=== PATIENT | male | born 1985 | race Caucasian/White ===

== ENCOUNTER 2025-03-09 20:20 | Inpatient (IN) | payer OTHER, SELFPAY ==
[2025-03-09] VITALS (7 sets, daily range): BP systolic 115–149; BP diastolic 63–83; PULSE 91–124; RESP 16–21; TEMP 37.1; O2SAT 91–96; BMI 32.5
[2025-03-09] MEDS: KETOROLAC 30 MG/ML VIAL 15 MG IV (21:11)
[2025-03-09] MEDS: LACTATED RINGERS 1,000 ML 1000 ML IV ×2 (21:12→22:24)
--- NOTE | 2025-03-09 21:38 | PC.NURSE ---
pt was admitted to [facility] yesterday, but was boarding in the ED, dx with pancreatitis. pt left AMA mónica to come here. pt states he did not think they did the tests right and he did not understand what was going on with his body and just wanted to understand so he could get better and go back to work. Explained to pt that the testing done at [facility] was the correct testing, that he was boarding d/t the hospital being full. Explained pancreatitis to pt, after pt stated he had stopped drinking after having the problem before until last night, that this was a problem that he would not be able to ever drink any alcohol without most likely irritating his pancreatits again and causing a flare. pt stated I wish the doctor had explained that to me before. Provided pt education on the tests that were done at [facility] and our plan of care here to follow up on those tests,
[2025-03-09 21:46] LABS: Alanine Aminotransferase 26 IU/L (<50); Albumin 3.8 g/dL (3.5-5.0); Albumin Globulin Ratio 1.2 (1.0-2.8); Alkaline Phosphatase 78 U/L (38-126); Blood Urea Nitrogen 6 mg/dL (9-20); Calcium 8.7 mg/dL (8.4-10.2); Carbon Dioxide 26 mmol/L (22-32); Chloride 98 mmol/L (98-107); Estimated Glomerular Filt Rate > 60 mL/min (>60); Globulin 3.3 g/dL (1.7-4.1); Glucose 87 mg/dL (70-99); HEMOLYSIS < 15 (0-50); Lipase 705 U/L (23-300); Potassium 3.5 mmol/L (3.4-5.1); Sodium 132 mmol/L (137-145); Total Protein 7.1 g/dL (6.3-8.2)
[2025-03-09 21:53] LABS: Add Manual Diff / Slide Review NO; Hematocrit 40.3 % (41-53); Hemoglobin 13.6 g/dL (13.5-17.5); Lymphocytes Absolute Auto 600 /uL (1100-4500); Mean Corpuscular HGB Conc 33.7 % (30-36); Mean Corpuscular Hemoglobin 31.8 PG (26-34); Mean Corpuscular Volume 94.2 fL (80-100); Platelet Count 235 X10^3/uL (150-400)
--- NOTE | 2025-03-09 22:08 | ED.ABDPAIN ---
HPI - Abdominal Pain General Chief Complaint: Abdominal Pain Stated Complaint: Abdominal pain Time Seen by Provider: 03/09/25 20:24 Source: patient Mode of arrival: Ambulatory History of Present Illness HPI narrative: 40-year-old gentleman seen at [facility] ER for epigastric abdominal pain with a history of recurrent pancreatitis and duodenitis recently admitted to 3 weeks ago for the same presentation with a history of alcoholism. When he was seen in the ER on 03/08 his lipase was 373 urine was normal given fluids and Dilaudid and Ativan given Maalox and Protonix also he was also given a prescription for oxycodone omeprazole to his pharmacy after having left Against Medical Advice. He had a CT scan done on 03/08 in the ER which showed interval development of colitis involving the hepatic flexure and proximal transverse colon. Decreased thickening and mucosal edema of the 1st and 2nd portion of the duodenum which may represent improving duodenitis. Pulmonary nodules in the bilateral lung bases. Indeterminate lesion 2.9 cm in the left upper pole may represent a hemorrhagic cyst and to consider follow up with renal ultrasound when feasible he did have a white count of 14.9 hemoglobin 13.6 platelets 291 sodium 136 anion gap of 8 BUN 7 creatinine 0.7 T bili was 2.1 from 1.9 yesterday lipase went up to 495 today. His last drink was on 03/07. He drinks beer 6-12 pack and whiskey. Other than what is stated 14 point review of system is negative. Related Data Allergies Allergy/AdvReac Type Severity Reaction Status Date / Time No Known Drug Allergies Allergy Verified 03/09/25 20:26 Review of Systems Review of Systems ROS Unobtainable: All systems reviewed & are unremarkable except as noted in HPI and below Patient History Smoking Status: Current every day smoker Exam Narrative Exam Narrative: GENERAL: [40 year old patient appears stated age. Well-developed patient, in mild distress. HEAD: Atraumatic. Normocephalic. EYES: Pupils equal round and reactive. Extraocular motions intact. No scleral icterus. No injection or drainage. ENT: Nose without bleeding, purulent drainage. Throat without erythema, tonsillar hypertrophy or exudate. Airway patent. NECK: Trachea midline. Non tender CARDIOVASCULAR: Regular rate and rhythm without murmurs, gallops, or rubs. RESPIRATORY: Clear to auscultation. Breath sounds equal bilaterally. No wheezes, rales, or rhonchi. GASTROINTESTINAL: Abdomen soft, diffuse tenderness to palpation but no peritoneal signs EXTREMITIES: No edema or joint tenderness. BACK: Nontender without deformity or crepitance. No flank tenderness. NEURO: AOx3. SKIN: No rash or erythema of visible areas Initial Vital Signs Initial Vital Signs: Vital Signs Temperature 98.8 F 03/09/25 20:26 Pulse Rate 124 H 03/09/25 20:26 Respiratory Rate 18 03/09/25 20:26 Blood Pressure 130/79 03/09/25 20:26 Pulse Oximetry 96 03/09/25 20:26 Oxygen Delivery Method Room Air 03/09/25 20:26 Course Orders Ordered: ED Orders 03/09/25 21:25 Complete Blood Count AUTO DIFF Stat Comprehensive Metabolic Panel Stat Lipase Stat Discontinued Medications Lactated Ringer's (Lactated Ringers) 1,000 mls @ 1,000 mls/hr IV BOLUS ONE Stop: 03/09/25 22:01 Last Admin: 03/09/25 21:12 Dose: 1,000 mls/hr Documented By: TREVON Ketorolac Tromethamine (Ketorolac 30 Mg/Ml Vial) 15 mg IV NOW ONE Stop: 03/09/25 21:03 Last Admin: 03/09/25 21:11 Dose: 15 mg Documented By: TREVON Vital Signs Vital signs: Vital Signs - 8 hr 03/09/25 20:26 Temperature 98.8 F Pulse Rate 124 H Respiratory Rate 18 Blood Pressure 130/79 Pulse Oximetry 96 Oxygen Delivery Method Room Air MDM - Abdominal Pain Lab Data 03/09/25 21:25 03/09/25 21:25 Labs: Lab Results 03/09/25 Range/Units 21:25 WBC 12.2 H (4.5-11.0) X10^3/uL RBC 4.28 L (4.5-5.9) X10^6/uL Hgb 13.6 (13.5-17.5) g/dL Hct 40.3 L (41-53) % MCV 94.2 (80-100) fL MCH 31.8 (26-34) PG MCHC 33.7 (30-36) % RDW 14.2 (11.6-14.8) % Plt Count 235 (150-400) X10^3/uL Neut % (Auto) 88.3 H (50-75) % Lymph % (Auto) 4.8 L (25-40) % [place] % (Auto) 5.9 (3-14) % Eos % (Auto) 0.4 L (2-4) % Baso % (Auto) 0.6 (0-2) % Neut # (Auto) 34563 H (6749-7071) /uL Lymph # (Auto) 600 L (3354-4425) /uL [place] # (Auto) 700 (0-900) /uL Eos # (Auto) 0 (0-450) /uL Baso # (Auto) 100 (0-100) /uL Sodium 132 L (137-145) mmol/L Potassium 3.5 (3.4-5.1) mmol/L Chloride 98 (98-107) mmol/L Carbon Dioxide 26 (22-32) mmol/L BUN 6 L (9-20) mg/dL Creatinine 0.66 (0.66-1.25) mg/dL Estimated GFR > 60 (>60) mL/min BUN/Creatinine Ratio 9.1 (6-22) Glucose 87 (70-99) mg/dL Calcium 8.7 (8.4-10.2) mg/dL Total Bilirubin 1.5 H (0.2-1.3) mg/dL AST 32 (17-59) IU/L ALT 26 (<50) IU/L Alkaline Phosphatase 78 (38-126) U/L Total Protein 7.1 (6.3-8.2) g/dL Albumin 3.8 (3.5-5.0) g/dL Globulin 3.3 (1.7-4.1) g/dL Albumin/Globulin Ratio 1.2 (1.0-2.8) Lipase 705 H (23-300) U/L MDM Narrative Medical decision making narrative: All lab work, vital signs, nurse triage note, medication list, previous ER visits, and all imaging studies reviewed. WBC 12.2 hemoglobin 13.6 with 235 sodium 132 potassium 3.5 chloride 98 CO2 26 BUN 6 creatinine 0.66 AST 32 ALT 26 T bili 1.5 lipase 705 patient given lactated ringer 1 L bolus x2, Toradol, protonix and dilaudid here. Differential diagnosis alcoholic pancreatitis, alcohol withdrawal, use and abuse. Case discussed with who has graciously accepted the patient for inpatient admission Discharge Plan Departure Patient Disposition: Admitted as Observation Clinical Impression: Acute alcoholic pancreatitis Qualifiers: Acute pancreatitis complication: no infection or necrosis Qualified Code(s): K85.20 - Alcohol induced acute pancreatitis without necrosis or infection
[2025-03-09] MEDS: PANTOPRAZOLE 40 MG VIAL IV (22:30)
--- NOTE | 2025-03-09 22:45 | P.HP_ITS ---
History of Present Illness History of Present Illness Chief complaint: Abdominal pain Narrative: 40 M with PMH of alcohol use disorder drinking 12 pack beer + whiskey daily presents for continued epigastric pain. He was seen yesterday at [facility] ER but left AMA due to boarding in ER. Alcohol level was reportedly not done there. Lipase was 373 and he was given IV fluids, Dilaudid, Ativan, Maalox, and Protonix along with prescription for omeprazole and oxycodone upon leaving AMA. CT showed colitis and duodenitis. Of note, 3 weeks ago, he was admitted for alcoholic pancreatitis and duodenitis. His last alcoholic drink was reportedly on 03/07 after quitting alcohol after the last hospitalization 2.5 weeks ago until 03/07 but has no withdrawal symptoms as of yet. He denies ever having withdrawal seizures. He has never been hospitalized for pancreatitis. Now, his lipase is 705 with mild leucocytosis of 12.2 Ramandeep criteria cannot be calculated for initial or 48 hours (today) due to lack of required data points. In ED today, he has received IV fluids, Toradol, Protonix, and Dilaudid. [facility] Social History Smoking Status: Current every day smoker Meds Home Medications and Allergies Allergies Allergy/AdvReac Type Severity Reaction Status Date / Time No Known Drug Allergies Allergy Verified 03/09/25 20:26 Review of Systems Review of Systems Narrative: As per HPI. Rest of 10-system review negative. Exam Vital Signs (past 8 hours): - 03/09/25 20:26 03/09/25 21:23 03/09/25 21:23 Temperature 98.8 F Pulse Rate 124 H 107 H Respiratory Rate 18 Blood Pressure 130/79 122/78 Pulse Oximetry 96 94 Oxygen Delivery Method Room Air 03/09/25 21:30 03/09/25 21:30 03/09/25 22:00 Temperature Pulse Rate 103 H Respiratory Rate Blood Pressure 122/71 115/73 Pulse Oximetry 93 Oxygen Delivery Method 03/09/25 22:00 Temperature Pulse Rate 91 H Respiratory Rate 18 Blood Pressure Pulse Oximetry 92 Oxygen Delivery Method Oxygen Delivery Method Room Air Narrative Exam Narrative: Patient was evaluated entirely through 2-way audio/video telemedicine with RN assistance in exam. Physician was not present at beside in person at any time for this evaluation. Consent for telemedicine obtained from patient. Const Other: awake, alert, no acute distress, pain when changing position in bed HENMT Other: normocephalic, atraumatic, anicteric sclerae Resp Other: CTA-B Cardio Other: RRR GI Other: S/mildly distended. tender diffusely with rebound but no guarding Skin Other: no spider angiomata, rashes, ecchymoses seen Neuro Other: normal speech, no asterixis Extrem Other: no edema Psych Other: normal mood Objective Labs 03/09/25 21:25 03/09/25 21:25 Labs: Laboratory Results - last 24 hr 03/09/25 21:25 WBC 12.2 H RBC 4.28 L Hgb 13.6 Hct 40.3 L MCV 94.2 MCH 31.8 MCHC 33.7 RDW 14.2 Plt Count 235 Neut % (Auto) 88.3 H Lymph % (Auto) 4.8 L [place] % (Auto) 5.9 Eos % (Auto) 0.4 L Baso % (Auto) 0.6 Neut # (Auto) 39618 H Lymph # (Auto) 600 L [place] # (Auto) 700 Eos # (Auto) 0 Baso # (Auto) 100 Sodium 132 L Potassium 3.5 Chloride 98 Carbon Dioxide 26 BUN 6 L Creatinine 0.66 Estimated GFR > 60 BUN/Creatinine Ratio 9.1 Glucose 87 Calcium 8.7 Total Bilirubin 1.5 H AST 32 ALT 26 Alkaline Phosphatase 78 Total Protein 7.1 Albumin 3.8 Globulin 3.3 Albumin/Globulin Ratio 1.2 Lipase 705 H Assessment & Plan Assessment and plan (1) Acute alcoholic pancreatitis: Qualifiers: Acute pancreatitis complication: no infection or necrosis Qualified Code(s): K85.20 - Alcohol induced acute pancreatitis without necrosis or infection Status: Acute Assessment & Plan narrative: 40M with ongoing alcohol use disorder presents with ongoing and recurrent acute alcoholic pancreatitis with duodenitis and possible new colitis. 1. Acute alcoholic pancreatitis, POA 2. Acute alcohol use disorder, POA 3. Acute recurrent duodenitis, POA 4. Acute colitis, POA 5. Leucocytosis, likely reactive, POA Plan: 1. Admit to floor 2. CIWA protocol 3. NPO, IV fluids 4. IV thiamine 5. Opiates for pain if needed 6. SW consult in AM for alcohol treatment 7. No indication yet for antibiotics 8. Recheck CT abdomen without oral contrast 9. May need GI/hepatology consult/referral Code: [employer]-Based Coding :: [TOTAL MINUTES] spent with patient and on the chart (including review of chart, obtaining history, exam, reviewing outside data, placing orders, documenting exam and treatment plan, and counseling patient) on [DATE].
[2025-03-10] VITALS (39 sets, daily range): BP systolic 103–136; BP diastolic 65–80; PULSE 68–107; RESP 13–56; TEMP 36.2–36.9; O2SAT 89–100; BMI 32.5
--- NOTE | 2025-03-10 | DI.CT.S_ITS ---
PROCEDURE: CT ABDOMEN PELVIS W CON INDICATIONS: worsening abdominal pain, pancreatitis TECHNIQUE: After the administration of intravenous contrast, axial sections acquired from the lung bases to the pubic symphysis. Coronal and sagittal reformats were performed. For radiation dose reduction, the following was used: automated exposure control, adjustment of mA and/or kV according to patient size. COMPARISON: None. FINDINGS: Image quality: Diagnostic. Lower Chest: No significant findings. ABDOMEN: Liver: No solid mass. Gallbladder: Removed. Biliary ducts: No biliary dilation. Pancreas: Significant inflammatory change can be seen adjacent to the head of the pancreas. No abnormal focal regional pancreatic enhancement can be seen. The pancreatic duct is mildly dilated to 5 mm. No peripancreatic fluid collections are seen. Spleen: Size is within normal limits. Adrenal Glands: No adrenal nodules. Kidneys and Ureters: No hydronephrosis. Likely hyperdense cyst versus accessory splenules can be seen superior to the left kidney. No complex renal cystic lesion which requires follow up. A 2 mm nonobstructing left-sided kidney stone can be seen. Stomach and Bowel: There is wall thickening seen within the duodenum. There is also wall thickening seen involving the proximal transverse colon. No dilated loops of small bowel are seen. No significant additional colonic abnormality is seen. A normal appendix is noted. Peritoneum: A small amount of ascites is seen. No free air. Ventral Wall: No significant ventral hernia. Abdominal Nodes: No retroperitoneal or mesenteric adenopathy by size criteria. Vessels: Aorta and inferior vena cava are normal in size. PELVIS: Pelvic Organs: Unremarkable. Bladder: No bladder wall thickening, accounting for underdistention. Pelvic Nodes: No enlarged lymph nodes. Miscellaneous: Bilateral fat containing inguinal hernias are seen. Bones: No aggressive osseous abnormality. At least 1 remote, healed right lateral rib fracture can be seen. IMPRESSION: Significant inflammatory change seen adjacent to the head of the pancreas. Mild pancreatic ductal dilatation is seen. No pancreatic necrosis can be seen. No peripancreatic fluid collections are seen. There is mild ascites. Associated wall thickening can be seen involving the duodenum and the proximal transverse colon. Likely hyperdense cysts versus an accessory splenules can be seen superior to the left kidney. When clinically appropriate, a follow-up renal ultrasound versus a dedicated renal mass protocol CT (without and with contrast) mass is suggested for further evaluation. Additional findings: At least 1 healed right lateral rib fracture Cholecystectomy 2 mm nonobstructing left-sided kidney stone Bilateral fat containing inguinal hernias Dictated by: Vladimir Do M.D. on 03/09/2025 at 23:52 Approved by: Vladimir Do M.D. on 03/09/2025 at 23:56
[2025-03-10] MEDS: THIAMINE 100 MG in SODIUM CHLORIDE 0.9% 100 ML 404 MG IV (00:24)
[2025-03-10] MEDS: SODIUM CHLORIDE 0.9% 1,000 ML 75 ML IV ×2 (00:25→13:47)
[2025-03-10 00:57] LABS: Appearance Urine UA CLEAR; Bilirubin Urine UA NEGATIVE (NEGATIVE); Color Urine UA YELLOW; Glucose Urine UA NEGATIVE (Negative); Ketones Urine UA 1+ (NEGATIVE); Leukocyte Esterase Urine UA NEGATIVE (NEGATIVE); Nitrite Urine UA NEGATIVE (Negative); Occult Blood Urine UA NEGATIVE (Negative); Protein Urine UA TRACE (Negative); Specific Gravity Urine UA 1.015 (1.000-1.035); Urobilinogen Urine UA 1.0 E.U./dL (0.2); pH Urine UA 5.5 (4.5-8.0)
[2025-03-10 01:23] LABS: Culture Indicated Urine Cult Not Indicated
--- NOTE | 2025-03-10 03:30 | PC.NURSE ---
Patient sleeps restlessly replaced ECG stickers and advised pt that we need to monitor him with this while he is here and we will check vitals every 4 hours.
[2025-03-10] MEDS: POTASSIUM CHLORIDE IN WATER 10 MEQ/100 ML PIGGYBACK 100 MEQ IV ×2 (08:49→09:50)
[2025-03-10 09:26] LABS: Add Manual Diff / Slide Review NO; Hematocrit 36.1 % (41-53); Hemoglobin 12.4 g/dL (13.5-17.5); Lymphocytes Absolute Auto 1000 /uL (1100-4500); Mean Corpuscular HGB Conc 34.3 % (30-36); Mean Corpuscular Hemoglobin 32.1 PG (26-34); Mean Corpuscular Volume 93.7 fL (80-100); Platelet Count 219 X10^3/uL (150-400)
[2025-03-10 09:37] LABS: Alanine Aminotransferase 19 IU/L (<50); Albumin 3.0 g/dL (3.5-5.0); Albumin Globulin Ratio 1.0 (1.0-2.8); Alkaline Phosphatase 68 U/L (38-126); Blood Urea Nitrogen 7 mg/dL (9-20); Calcium 8.2 mg/dL (8.4-10.2); Carbon Dioxide 29 mmol/L (22-32); Chloride 99 mmol/L (98-107); Estimated Glomerular Filt Rate > 60 mL/min (>60); Globulin 3.0 g/dL (1.7-4.1); Glucose 78 mg/dL (70-99); HEMOLYSIS 21 (0-50); Magnesium 1.8 mg/dL (1.6-2.3); Potassium 3.8 mmol/L (3.4-5.1); Sodium 132 mmol/L (137-145); Total Protein 6.0 g/dL (6.3-8.2)
--- NOTE | 2025-03-10 11:09 | PC.NURSE ---
pt ambulating on own to restroom. Denies needing anything at this time
[2025-03-10] MEDS: HYDROmorphone 2 MG/ML SYRINGE IV ×6 (12:08→23:01)
--- NOTE | 2025-03-10 13:05 | P.HP_ITS ---
History of Present Illness History of Present Illness Date Patient Seen: 03/10/25 Time Patient Seen: 08:45 Chief complaint: Abdominal pain Narrative: From night hospitalist: 40 M with PMH of alcohol use disorder drinking 12 pack beer + whiskey daily presents for continued epigastric pain. He was seen yesterday at [facility] ER but left AMA due to boarding in ER. Alcohol level was reportedly not done there. Lipase was 373 and he was given IV fluids, Dilaudid, Ativan, Maalox, and Protonix along with prescription for omeprazole and oxycodone upon leaving AMA. CT showed colitis and duodenitis. Of note, 3 weeks ago, he was admitted for alcoholic pancreatitis and duodenitis. His last alcoholic drink was reportedly on 03/07 after quitting alcohol after the last hospitalization 2.5 weeks ago until 03/07 but has no withdrawal symptoms as of yet. He denies ever having withdrawal seizures. He has never been hospitalized for pancreatitis. Now, his lipase is 705 with mild leucocytosis of 12.2 [place] criteria cannot be calculated for initial or 48 hours (today) due to lack of required data points. In ED today, he has received IV fluids, Toradol, Protonix, and Dilaudid. Interval history: The patient reports pain is adequately controlled. Who states he has not had alcohol in 2 weeks since his original first presentation with pancreatitis. [facility] Social History Smoking Status: Current every day smoker Meds Home Medications and Allergies Allergies Allergy/AdvReac Type Severity Reaction Status Date / Time No Known Drug Allergies Allergy Verified 03/09/25 20:26 Review of Systems Review of Systems ROS: Yes All systems reviewed with the patient and are negative except as otherwise documented Exam Vital Signs (past 8 hours): - 03/10/25 05:30 03/10/25 06:00 03/10/25 06:05 Pulse Rate 82 87 Respiratory Rate 18 22 Blood Pressure 112/75 Blood Pressure [Left Arm] Pulse Oximetry Oxygen Delivery Method 03/10/25 06:05 03/10/25 06:10 03/10/25 06:30 Pulse Rate 87 88 83 Respiratory Rate 14 14 17 Blood Pressure Blood Pressure [Left Arm] 112/75 Pulse Oximetry 96 100 92 Oxygen Delivery Method Room Air 03/10/25 07:00 03/10/25 07:30 03/10/25 08:00 Pulse Rate 88 77 Respiratory Rate 17 17 Blood Pressure 125/70 Blood Pressure [Left Arm] Pulse Oximetry 92 98 Oxygen Delivery Method 03/10/25 08:00 03/10/25 08:30 03/10/25 09:00 Pulse Rate 72 74 77 Respiratory Rate 15 18 15 Blood Pressure Blood Pressure [Left Arm] Pulse Oximetry 98 98 Oxygen Delivery Method 03/10/25 09:30 03/10/25 10:06 03/10/25 10:26 Pulse Rate 96 H 104 H 89 Respiratory Rate 19 17 Blood Pressure Blood Pressure [Left Arm] Pulse Oximetry 92 90 L 93 Oxygen Delivery Method 03/10/25 10:26 03/10/25 10:30 03/10/25 11:00 Pulse Rate 86 81 Respiratory Rate 15 14 Blood Pressure 118/67 Blood Pressure [Left Arm] Pulse Oximetry 92 92 Oxygen Delivery Method 03/10/25 11:30 03/10/25 12:00 03/10/25 12:00 Pulse Rate 77 80 Respiratory Rate 14 15 Blood Pressure 132/80 Blood Pressure [Left Arm] Pulse Oximetry 93 94 Oxygen Delivery Method 03/10/25 12:30 Pulse Rate 83 Respiratory Rate 31 H Blood Pressure Blood Pressure [Left Arm] Pulse Oximetry 91 Oxygen Delivery Method Oxygen Delivery Method Room Air Narrative Exam Narrative: GENERAL: This is a pleasant, fatigued appearing male patient, in no apparent distress. HEAD: Atraumatic. Normocephalic. No temporal or scalp tenderness. EYES: Pupils equal round and reactive. Extraocular motions intact. No scleral icterus. No injection or drainage. ENT: Mucous membranes pink and moist. NECK: Trachea midline. No JVD, bruits or lymphadenopathy. Supple, nontender, no meningeal signs. CARDIOVASCULAR: Regular rate and rhythm without murmurs, gallops, or rubs. RESPIRATORY: Clear to auscultation. GASTROINTESTINAL: Abdomen soft, moderate epigastric tenderness, no guarding, rebound or rigidity, mildly distended EXTREMITIES: No clubbing, cyanosis, or edema. NEUROLOGIC: Alert, oriented, speech fluent, full upper and lower motor strength, no focal deficits evident. DERMATOLOGIC: No rashes or skin lesions. Objective Imaging CT abdomen/pelvis 03/09/2025:: Radiologist's impression: Significant inflammatory change seen adjacent to the head of the pancreas. Mild pancreatic ductal dilatation is seen. No pancreatic necrosis can be seen. No peripancreatic fluid collections are seen. There is mild ascites. Associated wall thickening can be seen involving the duodenum and the proximal transverse colon. Likely hyperdense cysts versus an accessory splenules can be seen superior to the left kidney. When clinically appropriate, a follow-up renal ultrasound versus a dedicated renal mass protocol CT (without and with contrast) mass is suggested for further evaluation. Additional findings: At least 1 healed right lateral rib fracture Cholecystectomy 2 mm nonobstructing left-sided kidney stone Bilateral fat containing inguinal hernias Labs 03/10/25 09:15 03/10/25 09:15 Labs: Laboratory Results - last 24 hr 03/09/25 03/10/25 03/10/25 21:25 00:40 09:15 WBC 12.2 H 9.4 RBC 4.28 L 3.86 L Hgb 13.6 12.4 L Hct 40.3 L 36.1 L MCV 94.2 93.7 MCH 31.8 32.1 MCHC 33.7 34.3 RDW 14.2 14.4 Plt Count 235 219 Neut % (Auto) 88.3 H 80.0 H Lymph % (Auto) 4.8 L 10.6 L [place] % (Auto) 5.9 7.3 Eos % (Auto) 0.4 L 1.1 L Baso % (Auto) 0.6 1.0 Neut # (Auto) 49143 H 7500 H Lymph # (Auto) 600 L 1000 L [place] # (Auto) 700 700 Eos # (Auto) 0 100 Baso # (Auto) 100 100 Sodium 132 L 132 L Potassium 3.5 3.8 Chloride 98 99 Carbon Dioxide 26 29 BUN 6 L 7 L Creatinine 0.66 0.64 L Estimated GFR > 60 > 60 BUN/Creatinine Ratio 9.1 10.9 Glucose 87 78 Calcium 8.7 8.2 L Magnesium 1.8 Total Bilirubin 1.5 H 1.6 H AST 32 27 ALT 26 19 Alkaline Phosphatase 78 68 Total Protein 7.1 6.0 L Albumin 3.8 3.0 L Globulin 3.3 3.0 Albumin/Globulin Ratio 1.2 1.0 Lipase 705 H Urine Color Yellow Urine Appearance Clear Urine pH 5.5 Ur Specific Likely 1.015 Urine Protein Trace H Urine Glucose (UA) Negative Urine Ketones 1+ H Urine Occult Blood Negative Urine Nitrate Negative Urine Bilirubin Negative Urine Urobilinogen 1.0 Ur Leukocyte Esterase Negative Urine RBC None seen Urine WBC None seen Ur Squamous Epith Cells 0-1 /hpf Urine Bacteria None seen Ur Culture Indicated? Cult not indicated Vol Urine Centrifuged 10ml (spun) Assessment & Plan Assessment & Plan narrative: 40M with ongoing alcohol use disorder presents with ongoing and recurrent acute alcoholic pancreatitis with duodenitis and possible new colitis. 1. Acute alcoholic pancreatitis, POA 2. Acute alcohol use disorder, POA 3. Acute recurrent duodenitis, POA 4. Acute colitis, POA 5. Leucocytosis, likely reactive, POA Plan: 1. Admit to floor as observation 2. CIWA protocol 3. NPO, IV fluids 4. IV thiamine 5. Opiates for pain if needed 6. SW consult in AM for alcohol treatment 7. No indication yet for antibiotics 8. May need GI/hepatology consult/referral outpatient Code: Full Quality MIPS - Admit I confirm the patient?s Advance Care Plan is present, Code status is documented, Surrogate decision maker is in patient?s record [If Yes, STOP here]: Yes MIPS - Meds 'Current medications' to include all prescriptions, [id number] products, herbals, cannabis/cannabidiol products, and vitamin/mineral/dietary (nutritional) supplements. I have utilized all available resources to obtain, update, or review the patient?s current medications. [If Yes, STOP here]: Yes [employer] Developer Document charge(s): No Charge Codes Initial inpatient/observation care: [id number]
--- NOTE | 2025-03-10 19:40 | PC.NURSE ---
Patient arrived this afternoon from ED. He is A&OX4, VSS, afebrile, on RA. He is NSR on telemetry. CIWA score =0. Admission assessment completed. IVF running, seizure precuations, IV pain medications q 2 hr prn. Patient states pain in abdomen 8.5/10 and upon reassesment states pain 7/10 although he is able to nap intermittenly with IV diaudid 2 mg. Continuous monitoring.
[2025-03-10] MEDS: diphenhydrAMINE 50 MG/ML VIAL 25 MG IV (23:27)
[2025-03-11] MEDS: SODIUM CHLORIDE 0.9% 1,000 ML 75 ML IV ×2 (03:05→15:20)
[2025-03-11] MEDS: diphenhydrAMINE 50 MG/ML VIAL 25 MG IV (06:49)
[2025-03-11] MEDS: HYDROmorphone 2 MG/ML SYRINGE IV ×4 (06:50→15:36)
[2025-03-11] MEDS: THIAMINE 100 MG in SODIUM CHLORIDE 0.9% 100 ML 404 MG IV (08:46)
--- NOTE | 2025-03-11 16:14 | CM.DANOTE ---
Patient is a 40 yo male who was admitted INPT Status on 03/09/25 for Abd Pain. Pt has [employer] for insurance and no PCP. EMR was reviewed. Per MD, pt with ETOH use at baseline with about 12 pack of beer and whiskey daily and admitted 3 weeks ago at [facility] for pancreatitis and was in [facility] ED yesterday and boarded and then left AMA and came to [facility] for second opinion. Per MD, pt admitted for tx of ETOH pancreatits, colitis, and had last drink on 03/07/25 and slowly advancing diet and pain control. SW met bedside with pt and explained role and he confirms that he recently moved to the area as he broke up with his girlfriend and left her with their RV and vehicle and pt has been staying at his local brother's house on [address]. Pt confirms that he is a daily drinker but now wants to stop drinking to improve medically. Pt initially states he does not have concerns about alcohol cessation but did confirm with MD he is interested in MAT with Naltraxone to curb cravings. Pt states he does not have established PCP as he recent moved here and discussed Provider on [facility] or in [place] and pt preference is for SW to assist with PCP at [facility]. SW notified TCM group about pt's need to establish with PCP. Provided pt with [facility] information in [place] as additional resource for BONNIE tx and Medication Assisted Tx (MAT) if needed. Pt appreciative and confirms preference is home when stable and brother plans to provide transport at d/c. Plan: SW to follow for likely d/c home via brother POV and given BONNIE resources and attempting to set up pt with PCP. JAIME Hu Discharge Planning/Care Management CM Discharge Assessment Start: 03/10/25 06:44 Freq: Status: Active Protocol: Document 03/11/25 16:12 BF (Rec: 03/11/25 16:14 BF [id number]) Discharge Planning Assessment Assigned Discharge JAIME Greene Insurance Claims Representative Provider none Insurance Coordinated [employer] DPOA/Assigned none Designee Name Advance Directives? No Advance Directives No on File History Provided By Patient,Medical Record Has Patient been No admitted in last 30 days? Comment At [facility] 3 weeks ago and in their ED yesterday Prior Living Homeless Arrangements Comment Stays on his brother's couch most nights Type of Relies on Others transporation used prior to admit Independent with ADL Yes 's Is patient alert and Yes oriented? Caregiver for No Another Patient/Family Drug/Alcohol Rehab Preference Barriers to No Discharge Discharge Plan Home Transportation brother plans to transport at d/c Arrangement Referrals Initiated Other Additional Comment PCP and Shantir BONNIE tx Whiteboard Updated Yes in Patient Room with name and ext. # of Traveling Passenger Agent Review Status In Process Please Provide Date 03/11/25 Initial DC Assessment Was Performed Next Review Type Continued Stay Review
--- NOTE | 2025-03-11 16:16 | P.PN_ITS ---
Subjective Subjective Date Patient Seen: 03/11/25 Interval history: Chief complaint: Epigastric abdominal pain nausea vomiting in right testicular pain secondary to alcoholic pancreatitis and reflux epididymitis History of present illness: 03/10: 40 M with PMH of alcohol use disorder drinking 12 pack beer + whiskey daily presents for continued epigastric pain. He was seen yesterday at [facility] ER but left AMA due to boarding in ER. Alcohol level was reportedly not done there. Lipase was 373 and he was given IV fluids, Dilaudid, Ativan, Maalox, and Protonix along with prescription for omeprazole and oxycodone upon leaving AMA. CT showed colitis and duodenitis. Of note, 3 weeks ago, he was admitted for alcoholic pancreatitis and duodenitis. His last alcoholic drink was reportedly on 03/07 after quitting alcohol after the last hospitalization 2.5 weeks ago until 03/07 but has no withdrawal symptoms as of yet. He denies ever having withdrawal seizures. He has never been hospitalized for pancreatitis. Now, his lipase is 705 with mild leucocytosis of 12.2 Ramandeep criteria cannot be calculated for initial or 48 hours (today) due to lack of required data points. In ED today, he has received IV fluids, Toradol, Protonix, and Dilaudid. Interval history: The patient reports pain is adequately controlled. Who states he has not had alcohol in 2 weeks since his original first presentation with pancreatitis. Hospital course: 03/11: Patient having less pain in his epigastric and more pain in his right spermatic cord and right testicle is very hungry started a 25 g fat diet Review of systems: No chest pain shortness for breath No palpable No nausea vomiting No diarrhea No tremors or signs of withdrawal Pruritus all over Physical exam: Frustrated and uncomfortable appearing middle-aged male but not tremulous and not hyperactive HEENT: Periorbital skin irritation No labored respirations Right spermatic cord swollen and tender in right testicle swollen and tender Assessment and plan: Acute alcoholic pancreatitis and duodenitis * Currently on bowel rest IV fluid resuscitation and PPI * Trial of 25 g low-fat diet Alcohol use disorder: * Agree with short course of naloxone after discharge * Maybe candidate for 12 step program (AA) Right reflux epididymis/orchitis * Oral Levaquin DVT prophylaxis: * Not indicated patient is ambulatory Code status: * Full code blue Disposition: * Anticipate 24-48 hours more hospitalization inpatient Time based billing: * 35 minutes were involved evaluation of this patient including [id number] evaluation physical examination review of records objective laboratory and imaging findings and discussion with care treatment team Exam Vital Signs (past 8 hours): Oxygen Delivery Method Room Air Oxygen Flow Rate 0 Objective Labs 03/10/25 09:15 03/10/25 09:15 [facility] Social History Smoking Status: Current every day smoker alcohol intake: current Assessment & Plan Time-Based Coding :: [TOTAL MINUTES] spent with patient and on the chart (including review of chart, obtaining history, exam, reviewing outside data, placing orders, documenting exam and treatment plan, and counseling patient) on [DATE].
--- NOTE | 2025-03-11 17:12 | P.DS_ITS ---
History of Present Illness History of Present Illness Date Patient Seen: 03/11/25 Chief complaint: Abdominal pain Narrative: Chief complaint: Epigastric abdominal pain nausea vomiting in right testicular pain secondary to alcoholic pancreatitis and reflux epididymitis History of present illness: 03/10: 40 M with PMH of alcohol use disorder drinking 12 pack beer + whiskey daily presents for continued epigastric pain. He was seen yesterday at [facility] ER but left AMA due to boarding in ER. Alcohol level was reportedly not done there. Lipase was 373 and he was given IV fluids, Dilaudid, Ativan, Maalox, and Protonix along with prescription for omeprazole and oxycodone upon leaving AMA. CT showed colitis and duodenitis. Of note, 3 weeks ago, he was admitted for alcoholic pancreatitis and duodenitis. His last alcoholic drink was reportedly on 03/07 after quitting alcohol after the last hospitalization 2.5 weeks ago until 03/07 but has no withdrawal symptoms as of yet. He denies ever having withdrawal seizures. He has never been hospitalized for pancreatitis. Now, his lipase is 705 with mild leucocytosis of 12.2 Ramandeep criteria cannot be calculated for initial or 48 hours (today) due to lack of required data points. In ED today, he has received IV fluids, Toradol, Protonix, and Dilaudid. Interval history: The patient reports pain is adequately controlled. Who states he has not had alcohol in 2 weeks since his original first presentation with pancreatitis. Hospital course: 03/11: Patient having less pain in his epigastric and more pain in his right spermatic cord and right testicle is very hungry started a 25 g fat diet Review of systems: No chest pain shortness for breath No palpable No nausea vomiting No diarrhea No tremors or signs of withdrawal Pruritus all over Physical exam: Frustrated and uncomfortable appearing middle-aged male but not tremulous and not hyperactive HEENT: Periorbital skin irritation No labored respirations Right spermatic cord swollen and tender in right testicle swollen and tender Assessment and plan: Acute alcoholic pancreatitis and duodenitis * Currently on bowel rest IV fluid resuscitation and PPI * Trial of 25 g low-fat diet Alcohol use disorder: * Agree with short course of naloxone after discharge * Maybe candidate for 12 step program (AA) Right reflux epididymis/orchitis * Oral Levaquin DVT prophylaxis: * Not indicated patient is ambulatory Code status: * Full code blue Disposition: * Anticipate 24-48 hours more hospitalization inpatient however, patient left Against Medical Advice Time based billing: * 35 minutes were involved evaluation of this patient including [id number] evaluation physical examination review of records objective laboratory and imaging findings and discussion with care treatment team Discharge Providers Provider Date of admission: 03/09/25 22:39 Discharge Date: 03/11/25 Discharge provider: Jaron Burton MD Exam Vital Signs (past 8 hours): Oxygen Delivery Method Room Air Oxygen Flow Rate 0 Objective Labs 03/10/25 09:15 03/10/25 09:15 [facility] Social History Smoking Status: Current every day smoker alcohol intake: current Discharge Plan Discharge Plan Patient Disposition: Left Against Medical Advice Discharge orders & Medications Discharge Orders: Discharge (Order); Ordered 03/11/25 Ordered By: Jaron Burton Prescriptions: New levofloxacin 250 mg Tablet 750 mg PO 0700 Qty: 10 0RF oxycodone-acetaminophen 5-325 mg Tablet 1 tab PO Q4HR PRN (Reason: Pain, Moderate (4-6)) Qty: 12 0RF ondansetron 4 mg Tablet,Disintegrating 4 mg sublingual Q4HR PRN (Reason: Nausea) Qty: 9 0RF Continued pantoprazole 40 mg tablet,delayed release (DR/EC) 40 mg PO BID oxycodone 5 mg tablet 5 mg PO Q4H PRN (Reason: pain) Visit Report/Discharge Packet Stand Alone Forms: Patient Portal/API, Stroke Signs & Symptoms
--- NOTE | 2025-03-11 19:39 | PC.NURSE ---
Discharge Note Patient A&O, VSS, RA, no complaints of pain/discomfort. Discharge packet reviewed with patient, all questions/concerns adressed. PIV/TELE discontinued. Patient able to dress self and pack belongings. Patient taken down via wheelchair to POV.
--- NOTE | 2025-03-14 07:48 | CM.DPNOTE ---
Per TCM team, [facility] does not have any Providers that are contracted with pt's insurance unfortunately. Pt will need to try on [facility]. JAIME Hu
== END 2025-03-11 17:50 | disposition left against medical advice (07) | DRG 282 ==
LOC: ED 22:39 → AC 03-10 11:00
PROVIDERS: Admitting Provider Internal Medicine; Emergency Provider Family Medicine; Referring Provider Family Medicine; Visit Provider Internal Medicine
DX: K85.20 Alcohol induced acute pancreatitis without necrosis or infection (principal); K29.80 Duodenitis without bleeding; F17.200 Nicotine dependence, unspecified, uncomplicated; F10.90 Alcohol use, unspecified, uncomplicated; K52.9 Noninfective gastroenteritis and colitis, unspecified; N45.3 Epididymo-orchitis; Z53.29 Procedure and treatment not carried out because of patient's decision for other reasons
CPT/HCPCS: 36415; 74177; 80053; 81001; 83690; 83735; 85025; 96361; 96365; 96366; 96367; 96375; 96376; 99284; J1171; J1200; J1885; J2060; J2470; J7030; J7050; J7120; Q9967